=== PATIENT | female | born 1965 | race Caucasian/White ===

== ENCOUNTER → 2023-07-09 09:32 | Outpatient (REF) | payer OTHER, SELFPAY | LOC: HWRAD 09:32 | PROVIDERS: ATTENDING PHYSICIAN Internal Medicine Rheumatology; FAMILY PHYSICIAN Family Medicine | DX: M81.0 Age-related osteoporosis without current pathological fracture (principal) | CPT/HCPCS: 77080 ==

== ENCOUNTER 2023-08-29 08:33 | Emergency (ER) | payer BC, SELFPAY ==
[2023-08-29 08:44] VITALS: BP 184/90
--- NOTE | 2023-08-29 09:14 | ED.GENMED ---
History of Present Illness
General
Chief Complaint: Urinary Symptoms
Source: patient
Exam Limitations: none
Time Seen by Provider: 08/29/23 09:03
Travel History
Have you had any contact with someone who has COVID-19?: No
Do you have any symptoms of coronavirus? Fever > 100 degrees, chills, cough, shortness of breath, sore throat, loss of taste or smell, muscle aches, or headache?: No
History of Present Illness
History of Present Illness:
Patient with 3 episodes of gross hematuria overnight. Some frequency. Some dysuria. No fever chills no flank or back pain. Has had a recent cough and does have some left lateral chest pain with coughing only. No shortness of breath. No history
of same
Past History
Past History
ED Past Medical History: Other (Osteoporosis)
ED Past Surgical History:
Review of Systems
Review of Systems
All Other Systems: Not applicable
Constitutional: Denies fever or chills
Phy Exam
Physical Exam
Physical Exam:
GENERAL: Alert and oriented in no apparent distress
EYE: Orbits normal.
NECK: Supple
CARDIAC: Regular rate and rhythm without any obvious murmurs.
LUNGS: Clear breath sounds,normal
ABDOMEN: Soft, without focal tenderness or distention. No CVA tenderness
NEUROLOGICAL: Alert and oriented , grossly non-focal
SKIN: Warm and dry, no rash or lesion, no discoloration, skin intact.
MUSCULOSKELETAL: No edema,no deformity.Good color
PSYCH: Normal and appropriate interaction.
Course
Orders/Labs/Results
Orders:
Orders
08/29/23 09:12
IV Insert/Care/Rem.- Treatment PRN
0.9% Sodium Chloride 500 ml [Nss] 500 ml IV BOLUS
08/29/23 09:13
CT Abd/pel Without Iv Or Oral Urgent
Comment:
Reason For Exam: hematuria. frequenxy
08/29/23 09:17
Basic Metabolic Panel Urgent
Complete Blood Count/With Diff Urgent
UA Reflex to Culture [Urinalysis Reflex To Culture] Urgent
Date Specimen was Collected: 08/29/23
Time Specimen was Collected: 08:55
Urine Microscopic Reflex Cult Urgent
08/29/23 11:42
Cephalexin Monohydrate [Keflex] 500 mg PO NOW STA
Abnormal Lab Results
08/29/23
09:17
WBC 12.4 H 10^3/uL
(4.8-10.8)
Absolute Neuts (auto) 11.0 H 10^3/uL
(1.4-6.5)
Absolute Lymphs (auto) 0.9 L 10^3/uL
(1.2-3.4)
Neutrophils % 88.9 H %
(42.2-75.2)
Lymphocytes % 6.9 L %
(20.5-51.1)
Carbon Dioxide 31 H mmol/L
(22-30)
Creatinine 0.5 L mg/dL
(0.6-1.0)
Glucose 118 H mg/dl
(70-99)
Ur Occult Blood Reflex 2+ A
(Negative)
Leukocyte Esterase Rfl Trace A
(Negative)
08/29/23 09:17
08/29/23 09:17
Vital Signs
Initial and Last Documented VS:
Initial Vital Signs
Temp Pulse Resp BP Pulse Ox
98.8 F 110 17 184/90 99
08/29/23 08:44 08/29/23 08:44 08/29/23 08:44 08/29/23 08:44 08/29/23 08:44
Last Documented Vital Signs
Temp Pulse Resp BP Pulse Ox
98.5 F 90 17 146/77 98
08/29/23 10:44 08/29/23 10:44 08/29/23 10:44 08/29/23 10:44 08/29/23 10:44
MDM/Problems Addressed
Differential Diagnosis Includes:
Differential would include hemorrhagic cystitis, kidney stone, kidney stone with infection although unlikely. Bladder tumor or mass or urologic tumor. Workup in progress
*Radiology
Radiology exam reviewed: radiology read reviewed (No acute findings on CT. Report given to patient for follow-up)
*Pulse Oximetry
Patient hypoxic: no
*Critical Care Note
Total Time (30-74mins, 75-104mins- exclusive of procedures): Not Applicable
Data Reviewed
Review of Other/Old Records Reveals: Labs
Update Note
Update Note:
No obvious infectious issue. However with the urinary symptoms and mild white count we will cover with antibiotics. Patient tolerates Keflex well. Will need urologic follow-up and likely cystoscopy
ED Attending Note
-
Portions of this chart may have been created with voice recognition software.� Occasional wrong word or��sound alike� substitutions may have occurred due to the inherent limitations of voice recognition software.
Discharge Plan
Departure
Patient Disposition: Home (Routine Discharge)
Date of Disposition: 08/29/23
Time of Disposition: 11:41
Patient with high blood pressure during this ER visit?: Yes
Discharge Problem:
Hematuria
Instructions: Blood in the Urine (Hematuria), Adult (DC)
Prescriptions:
New
cephalexin 500 mg capsule
500 mg PO TID 7 Days Qty: 21 0RF
No Action
meloxicam 7.5 mg tablet
7.5 mg PO DAILY Qty: 20 0RF
Referrals:
Myles Steven MD [Active] - Follow up in 5-7 days
Homer Ghosh DO [Family Provider] - Follow up in 2-3 days
Interventions
Interventions:
*Risk Screen - Suicide Last Done: 08/29/23 09:26
*General Assessment Last Done: 08/29/23 09:26
*Neglect/Abuse Screening Last Done: 08/29/23 09:26
*ED COVID-19 Vaccine History Last Done: 08/29/23 09:26
*Nursing Disposition Last Done: 08/29/23 11:53
ED-Female Genitourinary Assessment Last Done: 08/29/23 09:26
Discharge Date and Time
Discharge Date/Time: 08/29/23 11:53
Print Language: UPPER SORBIAN
[2023-08-29] MEDS: NSS 500 IV (09:19)
[2023-08-29 09:34] LABS: % Basophils 0.2 % (0-2); % Eosinophils 0.1 % (0-6); % Immature Granulocytes 0.3 % (0-0.5); % Lymphocytes 6.9 % (20.5-51.1); % Monocytes 3.6 % (1.7-9.3); % Neutrophils 88.9 % (42.2-75.2); Absolute Lymphocytes 0.9 10^3/uL (1.2-3.4); Absolute Monocytes 0.5 10^3/uL (0.1-0.6); Hematocrit 38.4 % (37.0-47.0); Hemoglobin 12.9 g/dL (12.0-16.0); Mean Corp Hgb Conc. 33.6 g/dL (33.0-37.0); Mean Corpuscular Hgb 28.9 pg (27.0-31.0); Mean Corpuscular Volume 86.1 fL (81.0-99.0); Mean Platelet Volume 8.6 fL (7.4-10.4); Nucleated Red Blood Cells % 0 %; Platelet Count 386 10^3/uL (130-400); Red Blood Cell Count 4.46 10^6/uL (4.20-5.40); Red Cell Dist. Width 13.7 % (11.5-14.5); White Blood Cell Count 12.4 10^3/uL (4.8-10.8)
[2023-08-29 09:40] LABS: Blood Urea Nitrogen 12 mg/dl (7-17); Calcium 9.9 mg/dl (8.4-10.2); Carbon Dioxide 31 mmol/L (22-30); Chloride 99 mmol/L (98-107); Glucose 118 mg/dl (70-99); Potassium 4.1 mmol/L (3.5-5.1); Sodium 136 mmol/L (135-145); eGFR > 60.00
[2023-08-29 09:46] LABS: Urine Albumin Negative (Neg - Trace); Urine Bilirubin Negative (Negative); Urine Character Clear (Clear); Urine Color Yellow; Urine Glucose Negative (Negative); Urine Ketone Negative (Negative); Urine Leukocyte Trace (Negative); Urine Nitrite Negative (Negative); Urine Occult Blood 2+ (Negative); Urine Specific Gravity 1.005 (<1.030); Urine Urobilinogen Negative (Neg - 1+)
[2023-08-29 10:38] LABS: Urine Red Blood Cell 0-2 /HPF (0-2); Urine Squamous Cell 0-2 /LPF (Few)
[2023-08-29 10:44] VITALS: BP 146/77
[2023-08-29] MEDS: KEFLEX 500 MG PO (11:48)
== END 2023-08-29 11:53 | disposition home or self-care (01) ==
LOC: EMR 08:33
PROVIDERS: EMERGENCY PHYSICIAN Emergency Medicine; FAMILY PHYSICIAN Family Medicine
DX: R31.0 Gross hematuria (principal); R30.0 Dysuria; R03.0 Elevated blood-pressure reading, without diagnosis of hypertension
CPT/HCPCS: 99284; 96360; 96361; 74176; 80048; 81003; 81015; 85025

== ENCOUNTER → 2024-01-20 10:14 | Outpatient (REF) | payer BC, SELFPAY | LOC: HWWDC 10:14 | PROVIDERS: ATTENDING PHYSICIAN Obstetrics & Gynecology Gynecology; FAMILY PHYSICIAN Family Medicine | DX: Z12.31 Encounter for screening mammogram for malignant neoplasm of breast (principal) | CPT/HCPCS: 77063; 77067 ==

== ENCOUNTER → 2025-01-22 10:33 | Outpatient (REF) | payer BC, SELFPAY | LOC: HWWDC 10:33 | PROVIDERS: ATTENDING PHYSICIAN Obstetrics & Gynecology Gynecology; FAMILY PHYSICIAN Family Medicine | DX: Z12.31 Encounter for screening mammogram for malignant neoplasm of breast (principal) | CPT/HCPCS: 77063; 77067 ==